=== PATIENT | male | born 1940 | race Caucasian/White ===

== ENCOUNTER 2016-06-19 13:04 | Emergency (ER) | payer MEDICARE ==
[~2016-06-19] VITALS: Ht 185.4 cm; Wt 83.0 kg
[~2016-06-19 13:04] MED LIST: AMOX1TAB61 PO; CHONDROITIN PO; CRANBERRY PO; GLUCOSAMINE PO; HYDR1TAB12 PO; HYDROCODONE PO; LOVA40TA2 PO; MULTIVITAMIN PO; OXYC-302 PO; PRED20TA PO; PROSOM PO; RESV250C2 PO; TAMS-11 PO; VITAMIN D3 PO
[2016-06-19] MEDS ORDERED: METH2.5T PO (13:54)
[2016-06-19] MEDS ORDERED: TRAM100T2 PO (13:55)
[2016-06-19] MEDS ORDERED: FOLI0.4T2 PO (13:55)
[2016-06-19 14:13] LABS: HEMOGLOBIN 14.6 g/dL (13.7-18.0)
[2016-06-19 14:25] LABS: BLOOD UREA NITROGEN 32 mg/dL (7-18)
[2016-06-19 15:00] VITALS: BP 123/72
== END 2016-06-19 15:16 | disposition home or self-care (01) ==
LOC: ED 14:01
DX: R55 Syncope and collapse (principal); E86.0 Dehydration
CPT/HCPCS: 36415; 80048; 82040; 83735; 85025; 93005

== ENCOUNTER 2016-08-18 09:11 | Emergency (ER) | payer MEDICARE ==
[~2016-08-18] VITALS: Ht 182.9 cm; Wt 81.6 kg
[~2016-08-18 09:11] MED LIST changes: +FOLI0.4T2 PO; +METH2.5T PO; +TRAM100T2 PO
[2016-08-18 09:18] VITALS: BP 117/73
[2016-08-18] MEDS ORDERED: SODIUM CHLORIDE 0.9% 1,000 ML IV ONE (09:56)
[2016-08-18] MEDS ORDERED: SODIUM CHLORIDE FLUSH 10ML SYR IVF ONE (10:00)
[2016-08-18 11:03] LABS: PATH.CAST-FLAG NOT PRESENT; SPERM-FLAG NOT PRESENT; SRC-FLAG NOT PRESENT; XTAL-FLAG NOT PRESENT; YLC-FLAG NOT PRESENT
[2016-08-18 11:07] LABS: BLOOD UREA NITROGEN 27 mg/dL (7-18)
[2016-08-18 11:12] LABS: ASPARTATE AMINO TRANSFERASE 17 U/L (15-37)
[2016-08-18] MEDS ORDERED: OMNIPAQUE 350 MG/ML, 100ML BOTTLE ONE (11:38)
[2016-08-18] MEDS ORDERED: CEFTRIAXONE 1,000 MG in SODIUM CHLORIDE 0.9% 50 ML IVPB ONE (12:00)
== END 2016-08-18 13:13 ==
LOC: ED 10:45
DX: N39.0 Urinary tract infection, site not specified (principal); N10 Acute pyelonephritis; R10.30 Lower abdominal pain, unspecified; M86.9 Osteomyelitis, unspecified
CPT/HCPCS: 36415; 74177; 80053; 81001; 85025; 87086; 96361; 96365; 99285; J0696; J7030; Q9967

== ENCOUNTER 2017-02-14 09:29 | Day surgery (SDC) | payer MEDICARE ==
[2017-02-13 10:17] LABS: BLOOD UREA NITROGEN 21 mg/dL (7-18)
[~2017-02-14] VITALS: Ht 185.4 cm; Wt 81.6 kg
[~2017-02-14 09:29] MED LIST changes: +CALC-534 PO; +CRAN500C PO; +MULT-658 PO
[2017-02-14 09:54] VITALS: BP 131/73
[2017-02-14] MEDS ORDERED: LIDOCAINE 1%, 2ML ONE (09:54)
[2017-02-14] MEDS ORDERED: LACTATED RINGERS 1,000 ML IV SCH (09:58)
[2017-02-14] MEDS ORDERED: LIDOCAINE 1%, 2ML SQ PRN (10:00)
[2017-02-14] MEDS ORDERED: MIDAZOLAM 1 MG/ML, 2ML ONE (11:23)
[2017-02-14] MEDS ORDERED: FENTANYL PF 100 MCG/2ML ONE ×2 (11:23)
[2017-02-14] MEDS ORDERED: ALBUTEROL SULFATE 2.5 MG/3 ML NPPB PRN (11:30)
[2017-02-14] MEDS ORDERED: ONDANSETRON 2MG/ML, 2ML IVPush PRN (11:30)
[2017-02-14] MEDS ORDERED: ACETAMINOPHEN 325 MG TABLET PO PRN (11:30)
[2017-02-14] MEDS ORDERED: MIDAZOLAM 1 MG/ML, 2ML IV PRN (11:30)
[2017-02-14] MEDS ORDERED: OXYcodone 5 MG/5 ML ORAL.SOL UDC PO PRN (11:30)
[2017-02-14] MEDS ORDERED: hydrALAzine 20 MG/ML, 1ML IV PRN (11:30)
[2017-02-14] MEDS ORDERED: LABETALOL 5MG/ML, 20ML IV PRN (11:30)
[2017-02-14] MEDS ORDERED: HYDROmorphone 1 MG/ML, 1ML IV PRN (11:30)
[2017-02-14] MEDS ORDERED: FENTANYL PF 100 MCG/2ML IV PRN (11:30)
[2017-02-14] MEDS ORDERED: PROMETHAZINE 25 MG/ML, 1ML IV PRN (11:30)
[2017-02-14] MEDS ORDERED: MEPERIDINE/PF 25MG/0.5ML IVPush PRN (11:30)
[2017-02-14] MEDS ORDERED: PROPOFOL 10 MG/ML, 20ML ONE (11:53)
[2017-02-14] MEDS ORDERED: DEXAMETHASONE 4 MG/ML, 1ML ONE ×2 (11:54)
[2017-02-14] MEDS ORDERED: ROCURONIUM 10 MG/ML,10ML ONE (11:54)
[2017-02-14] MEDS ORDERED: ONDANSETRON 2MG/ML, 2ML ONE ×2 (11:54)
[2017-02-14] MEDS ORDERED: SUCCINYLCHOLINE 20 MG/ML, 10ML ONE (11:54)
[2017-02-14] MEDS ORDERED: CIPROFLOXACIN/PMX 400MG/200ML 200 ML ONE (11:55)
[2017-02-14] MEDS ORDERED: OPIUM/BELLADONNA SUPP.RECT 16.2-60 MG ONE (12:03)
[2017-02-14] MEDS ORDERED: EPHEDRINE 50 MG/ML, 1ML ONE (12:30)
[2017-02-14] MEDS ORDERED: OXYcodone/APAP 5/325MG TABLET PO PRN (13:30)
== END 2017-02-14 15:20 | disposition home or self-care (01) ==
LOC: OUT 09:29
PROVIDERS: ATTEND Urology
DX: N20.0 Calculus of kidney (principal); E78.00 Pure hypercholesterolemia, unspecified; N40.0 Benign prostatic hyperplasia without lower urinary tract symptoms; Z87.440 Personal history of urinary (tract) infections; Z98.890 Other specified postprocedural states
CPT/HCPCS: 36415; 50590; 71020; 74000; 80048; 85610; 85730; 93005; J0330; J0744; J1100; J2250; J2405; J2704; J3010; J3490; J7120

== ENCOUNTER 2017-07-24 08:12 | Emergency (ER) | payer MEDICARE ==
[~2017-07-24] VITALS: Ht 185.4 cm; Wt 80.0 kg
[~2017-07-24 08:12] MED LIST changes: -TRAM100T2 PO; +TRAM100T33 PO
[2017-07-24] MEDS ORDERED: ONDANSETRON ODT 4 MG PO ONE (09:30)
[2017-07-24] MEDS ORDERED: SODIUM CHLORIDE FLUSH 10ML SYR IVF ONE (09:30)
[2017-07-24 09:38] LABS: BASOPHILS # (AUTO) 0.02 x10^3/uL (0-0.1); BASOPHILS % (AUTO) 0 % (0-1); EOSINOPHILS # (AUTO) 0.04 x10^3/uL (0-0.4); EOSINOPHILS % (AUTO) 0 % (1-7); LYMPHOCYTES # (AUTO) 1.32 x10^3/uL (1-3.4); LYMPHOCYTES % (AUTO) 12 % (22-44); MD NO; MEAN CORPUSCULAR HEMOGLOBIN 30.6 pg (27.5-34.5); MEAN CORPUSCULAR HGB CONC 33.5 g/dL (33.2-36.2); MEAN CORPUSCULAR VOLUME 91.4 fL (81-97); MEAN PLATELET VOLUME 7.4 fL (7.4-10.4); MONOCYTES # (AUTO) 0.58 x10^3/uL (0.2-0.8); MONOCYTES % (AUTO) 5 % (2-9); NEUTROPHILS # (AUTO) 8.73 x10^3/uL (1.8-6.8); NEUTROPHILS % (AUTO) 82 % (42-75); PLATELET COUNT 283 x10^3/uL (130-400); RED BLOOD COUNT 4.15 x10^6/uL (4.38-5.82); RED CELL DISTRIBUTION WIDTH 14.2 % (9.4-14.8)
[2017-07-24 09:46] LABS: ALANINE AMINOTRANSFERASE 32 U/L (12-78); ALBUMIN 2.7 g/dL (3.4-5.0); ANION GAP 9 mmol/L (5-15); CALCIUM 8.2 mg/dL (8.5-10.1); CHLORIDE 112 mmol/L (98-107); CREATININE 0.67 mg/dL (0.7-1.3)
[2017-07-24 09:48] LABS: ALKALINE PHOSPHATASE 78 U/L (45-117); BILIRUBIN,TOTAL 0.5 mg/dL (0.2-1.0); TOTAL PROTEIN 6.3 g/dL (6.4-8.2)
[2017-07-24] MEDS ORDERED: MORPHINE SULFATE 4 MG/ML, 1ML ONE ×2 (10:10→10:39)
[2017-07-24] MEDS ORDERED: ONDANSETRON ODT 4 MG ONE (10:10)
[2017-07-24] MEDS: MORPHINE SULFATE 4 MG/ML, 1ML IVPush PRN ×2 (10:35→10:43)
[2017-07-24] MEDS ORDERED: OMNIPAQUE 350 MG/ML, 100ML BOTTLE ONE (10:36)
[2017-07-24 11:53] LABS: MICROSCOPIC INDICATED
[2017-07-24 12:04] LABS: CULTURE INDICATED? YES
[2017-07-24 12:33] VITALS: BP 101/49
== END 2017-07-24 12:36 | disposition home or self-care (01) ==
LOC: ED 11:44
DX: R10.11 Right upper quadrant pain (principal); J15.8 Pneumonia due to other specified bacteria; B96.89 Other specified bacterial agents as the cause of diseases classified elsewhere; C61 Malignant neoplasm of prostate
CPT/HCPCS: 36415; 71046; 74177; 80053; 81001; 83690; 85025; 87077; 87086; 96374; 99285; Q0162; Q9967; 87186

== ENCOUNTER → 2017-10-02 | Outpatient (CLI) | payer MEDICARE ==
[~2017-10-02] MED LIST changes: +FUROSEMIDE 20 MG/2 ML ONE
== END | disposition home or self-care (01) ==
LOC: RAD 09:38
PROVIDERS: ATTEND Urology
DX: R33.9 Retention of urine, unspecified (principal)
CPT/HCPCS: 78708; A9562; J1940

== ENCOUNTER 2019-03-07 20:59 | Emergency (ER) | payer MEDICARE ==
[~2019-03-07] VITALS: Ht 185.4 cm; Wt 85.8 kg
[~2019-03-07 20:59] MED LIST changes: +ACET325T26 PO; +AMPI500C2 PO; +CIPR500T87 PO; -FUROSEMIDE 20 MG/2 ML ONE; -HYDR1TAB12 PO; +HYDR1TAB13 PO; +SULF1TAB24 PO
[2019-03-07] MEDS ORDERED: ONDANSETRON 2MG/ML, 2ML ONE (21:27)
[2019-03-07] MEDS ORDERED: MORPHINE SULFATE 4 MG/ML, 1ML ONE (21:27)
[2019-03-07] MEDS ORDERED: KETOROLAC 30 MG/1 ML ONE (21:27)
[2019-03-07] MEDS ORDERED: ONDANSETRON 2MG/ML, 2ML IVPush ONE (21:30)
[2019-03-07] MEDS ORDERED: KETOROLAC 30 MG/1 ML IVPush ONE (21:30)
[2019-03-07] MEDS ORDERED: MORPHINE SULFATE 4 MG/ML, 1ML IVPush PRN (21:30)
[2019-03-07] MEDS ORDERED: SODIUM CHLORIDE FLUSH 10ML SYR IVF ONE (21:30)
[2019-03-07 21:55] LABS: BASOPHILS # (AUTO) 0.25 x10^3/uL (0-0.1); BASOPHILS % (AUTO) 2 % (0-1); EOSINOPHILS # (AUTO) 0.53 x10^3/uL (0-0.4); EOSINOPHILS % (AUTO) 5 % (1-7); LYMPHOCYTES # (AUTO) 2.47 x10^3/uL (1-3.4); LYMPHOCYTES % (AUTO) 22 % (22-44); MD NO; MEAN CORPUSCULAR HGB CONC 32.5 g/dL (33.2-36.2); MEAN CORPUSCULAR VOLUME 89.1 fL (81-97); MEAN PLATELET VOLUME 7.8 fL (7.4-10.4); MONOCYTES # (AUTO) 0.49 x10^3/uL (0.2-0.8); MONOCYTES % (AUTO) 5 % (2-9); NEUTROPHILS # (AUTO) 7.36 x10^3/uL (1.8-6.8); NEUTROPHILS % (AUTO) 66 % (42-75); PLATELET COUNT 462 x10^3/uL (130-400); RED BLOOD COUNT 4.96 x10^6/uL (4.38-5.82); RED CELL DISTRIBUTION WIDTH 15.7 % (9.4-14.8)
[2019-03-07 22:07] LABS: ALBUMIN 2.9 g/dL (3.4-5.0); ANION GAP 7 mmol/L (5-15); CALCIUM 8.9 mg/dL (8.5-10.1); CHLORIDE 109 mmol/L (98-107); CREATININE 0.97 mg/dL (0.7-1.3)
--- NOTE | 2019-03-07 22:15 | NUR ---
REPORT GIVEN TO JEEVAN
--- NOTE | 2019-03-07 22:15 | NUR ---
PRECEPTOR NOTE: ATTEMPTED TWICE TO PASS COUDE PRIETO, 14 JORDANIAN, AND PRIETO BALLOON POPPED TWICE AFTER PRIETO WAS ABLE TO BACK ALL THE WAY OUT AFTER GETTING URINE IN THE PRIETO LINE. DR. LIZAMA AWARE AND 16 JORDANIAN COUDE TO BE ATTTEMPTED. JEEVAN SHANE AWARE.
--- NOTE | 2019-03-07 22:29 | NUR ---
INSERTED 16 FR PRIETO CATH, URINE SAMPLE COLLECTED AND TAKEN TO LAB
[2019-03-07 22:48] LABS: MICROSCOPIC INDICATED
[2019-03-07] MEDS ORDERED: HYDR-36 PO (22:48)
[2019-03-07 22:49] LABS: CULTURE INDICATED? YES
--- NOTE | 2019-03-07 22:49 | NUR ---
PT RESTING ON GURNEY, DENIES NEEDS AT THIS TIME, MONITORS IN PLACE, SIDERAILS UP X2, CALL LIGHT WITHIN REACH. AWAITING LAB RESULT
[2019-03-07] MEDS ORDERED: CEFTRIAXONE PMX 1GM/50ML 50 ML IV ONE (23:00)
[2019-03-07] MEDS ORDERED: CEFTRIAXONE PMX 1GM/50ML 50 ML ONE (23:09)
--- NOTE | 2019-03-07 23:13 | NUR ---
PT RESTING CALMLY, IV ABX INFUSING, DENIES NEEDS AT THSI TIME, CALL LIGHT WITHIN REACH
[2019-03-07 23:14] VITALS: BP 111/71
--- NOTE | 2019-03-07 23:39 | NUR ---
CHANGED PRIETO CATH BAG TO LEG BAG
== END 2019-03-08 00:04 | disposition home or self-care (01) ==
LOC: ED 22:43
DX: N30.01 Acute cystitis with hematuria (principal); R10.30 Lower abdominal pain, unspecified; N40.1 Benign prostatic hyperplasia with lower urinary tract symptoms; R33.8 Other retention of urine; I10 Essential (primary) hypertension
CPT/HCPCS: 36415; 51702; 80048; 81001; 82040; 85025; 87086; 87186; 96365; 96375; 99284; J0696; J1885; J2270; J2405

== ENCOUNTER 2019-03-11 07:28 | Emergency (ER) | payer MEDICARE ==
[~2019-03-11] VITALS: Ht 185.4 cm; Wt 85.8 kg
[~2019-03-11 07:28] MED LIST changes: +HYDR-36 PO
--- NOTE | 2019-03-11 07:43 | NUR ---
[facility] chemist: Pt ambulatory to ED room 21 from [facility]y in [facility] at this time
--- NOTE | 2019-03-11 07:55 | NUR ---
THIS IS A 78 YO M W/ C/O LEFT SCAPULA PAIN THAT RADIATES INTO HIS NECK THAT STARTED 2-3 WEEKS AGO. PATIENT STATES HE HAS BEEN BED BOUND DUE TO PERINEUM PAIN THAT HE HAS BEEN SEEN AND TREATED FOR. RESPIRATIONS ARE EVEN AND UNLABORED. PATIENT IS IN NO ACUTE DISTRESS. CONVERSING WITH STAFF. CALL LIGHT IN REACH.
[2019-03-11] MEDS ORDERED: CYCLOBENZAPRINE 10 MG TABLET ONE (08:25)
[2019-03-11] MEDS ORDERED: KETOROLAC 30 MG/1 ML ONE (08:25)
[2019-03-11] MEDS ORDERED: CYCLOBENZAPRINE 10 MG TABLET PO ONE (08:30)
[2019-03-11] MEDS ORDERED: KETOROLAC 30 MG/1 ML IM ONE (08:30)
--- NOTE | 2019-03-11 08:32 | NUR ---
PATIENT MEDICATED PER EMAR
[2019-03-11 08:52] LABS: BASOPHILS # (AUTO) 0.03 x10^3/uL (0-0.1); BASOPHILS % (AUTO) 0 % (0-1); EOSINOPHILS # (AUTO) 0.27 x10^3/uL (0-0.4); EOSINOPHILS % (AUTO) 3 % (1-7); LYMPHOCYTES # (AUTO) 1.42 x10^3/uL (1-3.4); LYMPHOCYTES % (AUTO) 16 % (22-44); MD NO; MEAN CORPUSCULAR HEMOGLOBIN 28.2 pg (27.5-34.5); MEAN CORPUSCULAR HGB CONC 32.3 g/dL (33.2-36.2); MEAN CORPUSCULAR VOLUME 87.4 fL (81-97); MEAN PLATELET VOLUME 7.6 fL (7.4-10.4); MONOCYTES % (AUTO) 6 % (2-9); NEUTROPHILS # (AUTO) 6.55 x10^3/uL (1.8-6.8); NEUTROPHILS % (AUTO) 75 % (42-75); PLATELET COUNT 477 x10^3/uL (130-400); RED BLOOD COUNT 4.64 x10^6/uL (4.38-5.82); RED CELL DISTRIBUTION WIDTH 15.6 % (9.4-14.8)
--- NOTE | 2019-03-11 08:53 | NUR ---
REPORT RECEIVED FROM ACOSTA FISCHER. KIMMY BUNCH. PT CURRENTLY IN RADIOLOGY.
--- NOTE | 2019-03-11 09:03 | NUR ---
PT BACK FROM RADIOLOGY.
--- NOTE | 2019-03-11 09:10 | NUR ---
PT GIVEN INCONTINENCE BRIEF PER REQUEST, PT AMBULATORY WITH STEADY GAIT TO RESTROOM.
--- NOTE | 2019-03-11 09:46 | NUR ---
PT AMBULATORY WITH CARRIER OPERATOR TO RADIOLOGY.
--- NOTE | 2019-03-11 10:02 | NUR ---
ALL RESULTS BACK AT THIS TIME, CHART UP FOR RECHECK.
[2019-03-11 10:59] VITALS: BP 124/66
--- NOTE | 2019-03-11 10:59 | NUR ---
PT RESTING COMFORTABLY ON GURNEY, NO NEEDS.
[2019-03-11] MEDS ORDERED: BUPIVACAINE 0.25% ONE (11:05)
[2019-03-11] MEDS ORDERED: LIDOCAINE 1%-EPI 1:100K, 20ML ONE (11:05)
--- NOTE | 2019-03-11 11:13 | NUR ---
AT BEDSIDE FOR BLOCK.
--- NOTE | 2019-03-11 11:22 | NUR ---
PT REQUESTING TO USE THE RESTROOM BEFORE REVIEWING THE DISCHARGE PAPERWORK. PT AMBULATORY TO RESTROOM WITH STEADY GAIT AND NO STAFF ASSISTANCE.
--- NOTE | 2019-03-11 11:27 | NUR ---
Patient/Caregiver given discharge instructions and they have confirmed that they understand the instructions. Patient ambulatory with steady gait.
[2019-03-11] MEDS ORDERED: LIDOCAINE 1%-EPI 1:100K, 20ML SQ ONE (11:30)
[2019-03-11] MEDS ORDERED: BUPIVACAINE/PF-EPI 0.25% 1:200K SQ ONE (11:30)
== END 2019-03-11 11:40 | disposition home or self-care (01) ==
LOC: ED 10:09
DX: S29.012A Strain of muscle and tendon of back wall of thorax, initial encounter (principal); M54.2 Cervicalgia; E78.5 Hyperlipidemia, unspecified; I10 Essential (primary) hypertension; Z85.46 Personal history of malignant neoplasm of prostate; X58.XXXA Exposure to other specified factors, initial encounter; Y93.89 Activity, other specified; Y92.89 Other specified places as the place of occurrence of the external cause; Y99.8 Other external cause status
CPT/HCPCS: 20552; 36415; 71046; 72125; 85025; 96372; 99284; J1885; J3490

== ENCOUNTER 2019-06-24 09:42 | Inpatient (IN) | payer MEDICARE ==
[~2019-06-24] VITALS: Ht 185.4 cm; Wt 86.8 kg
[2019-06-24] MEDS ORDERED: SODIUM CHLORIDE FLUSH 10ML SYR IVF ONE (10:30)
[2019-06-24 10:32] LABS: MEAN CORPUSCULAR HEMOGLOBIN 25.9 pg (27.5-34.5); MEAN CORPUSCULAR HGB CONC 32.1 g/dL (33.2-36.2); MEAN CORPUSCULAR VOLUME 80.6 fL (81-97); MEAN PLATELET VOLUME 7.1 fL (7.4-10.4); PLATELET COUNT 507 x10^3/uL (130-400); RED BLOOD COUNT 4.03 x10^6/uL (4.38-5.82); RED CELL DISTRIBUTION WIDTH 18.2 % (9.4-14.8)
[2019-06-24 10:42] LABS: ALANINE AMINOTRANSFERASE 16 U/L (12-78); ALBUMIN 2.2 g/dL (3.4-5.0); ANION GAP 9 mmol/L (5-15); CALCIUM 8.7 mg/dL (8.5-10.1); CHLORIDE 106 mmol/L (98-107); CREATININE 1.73 mg/dL (0.7-1.3)
[2019-06-24 10:44] LABS: ALKALINE PHOSPHATASE 114 U/L (45-117); BILIRUBIN,TOTAL 0.9 mg/dL (0.2-1.0); TOTAL PROTEIN 7.5 g/dL (6.4-8.2)
[2019-06-24 10:59] LABS: BASOPHILS # (AUTO) 0.05 x10^3/uL (0-0.1); BASOPHILS % (AUTO) 0 % (0-1); EOSINOPHILS % (AUTO) 0 % (1-7); LYMPHOCYTES # (AUTO) 0.69 x10^3/uL (1-3.4); LYMPHOCYTES % (AUTO) 3 % (22-44); MD SCAN; MONOCYTES # (AUTO) 0.52 x10^3/uL (0.2-0.8); MONOCYTES % (AUTO) 2 % (2-9); NEUTROPHILS # (AUTO) 20.61 x10^3/uL (1.8-6.8); NEUTROPHILS % (AUTO) 94 % (42-75)
--- NOTE | 2019-06-24 11:06 | NUR ---
PT PRESENTS TO ED WITH C/O DIZZINESS X 2-3 DAYS, GENERALIZED ABD PAIN X 2 WEEKS. PT HAS A UROSTOMY TO RIGHT LOWER ABD QUAD, URINE NOTED IN BAG IS CLOUDY/CONCENTRATED. PT IS A&OX4, NEURO INTACT, RESPS EVEN AND UNLABORED. PT IS NSR ON DIRECTOR PEDIATRIC, RATE 80'S WITH NO ECTOPY. LABS DRAWN AND RESULTED, AWAITING MD RECHECK FOR CT/FURTHER ORDERS. CALL LIGHT IN REACH. PT UPDATED WITH POC. Addendum: 06/24/19 at 1437 by JUAN pt seen by hospitalist ebonie, however afterwards it was discovered pt is a [facility] pt. [facility] MD Terrell at bedside for admit assessment at this tme. pt a&ox4, resps even and unlabored, neuro intact, no complaint at this time. 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 med rec complete. awaiting admit bed assignment and transport.
[2019-06-24] MEDS ORDERED: ACETAMINOPHEN 500 MG TABLET PO ONE (11:30)
[2019-06-24] MEDS ORDERED: SODIUM CHLORIDE 0.9% 1,000ML IVBOLUS ONE ×2 (11:30→14:00)
--- NOTE | 2019-06-24 11:30 | NUR ---
ALL LABS REVIEWED WITH HIRAM SIFUENTES MD AWARE PT MEETS CRITERIA FOR SEPSIS INCL WBC 21. MD INFORMED OF VS AND TREND. MD DECLINES TO ORDER UA ( PT HAS UROSTOMY), AWARE URINE CLOUDY. ORDERS RECEIVED FOR IVF AND TYLENOL. PT TAKEN TO CT AT THIS TIME.
--- NOTE | 2019-06-24 12:34 | NUR ---
CT RESULTED, CHART UP FOR RECHECK. AWAITING MD AND ORDERS AT THIS TIME.
--- NOTE | 2019-06-24 13:18 | NUR ---
paged to review CT, orders requested for abx and additional IVF.
--- NOTE | 2019-06-24 13:36 | NUR ---
VELIA SIFUENTES NOTIFIED PT'S BP IS TRENDING DOWN, MAP NOW BELOW 65. ORDER RECEIVED TO ADMINISTER REMAINDER OF WEIGHT BASED NS BOLUS PER SEPSIS PROTOCOL, TOTAL OF 2304 ML TO BE ADMINISTERED (INCLUDING 1L ALREADY ADMIN.) SECOND LITER NS INFUSING AT THIS TIME. MD TO ORDER ABX SHORTLY. PT IS DOZING INTERMITTENTLY, AROUSES TO VOICE. PT IS A&OOX4, REPSS EVEN AND UNLABORED. 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 PT HAS NO COMPLAINT AT THIS TIME.
[2019-06-24] MEDS ORDERED: CEFTRIAXONE PMX 1GM/50ML 50 ML ONE (13:40)
[2019-06-24] MEDS ORDERED: CEFTRIAXONE PMX 1GM/50ML 50 ML IVPB ONE (14:00)
[2019-06-24] MEDS ORDERED: AZITHROMYCIN 500 MG in SODIUM CHLORIDE 0.9% 250 ML IV SCH (14:30)
[2019-06-24] MEDS ORDERED: sleeping pill PO (14:35)
--- NOTE | 2019-06-24 14:49 | NUR ---
ASSUMED CARE OF PATIENT. REPORT GIVEN FROM ACOSTA KO
--- NOTE | 2019-06-24 14:52 | NUR ---
REPORT GIVEN TO ACOSTA FLORES AT BEDSIDE. URINE WAS COLLECTED FROM UROSTOMY AT MD MELENDEZ' DIRECTION BY THIS RN, URINE LABELED AND IN TUBES AT BEDSIDE. (EDMO DECLINED TO ORDER UA) URINE SAMPLE COLLECTED APPROX 5 MIN AFTER IV ROCEPHIN INITIATED. THIS RN SPOKE WITH RITIKA SAWANT AT BEDSIDE WHO INSTRUCTED RN TO SEND URINE TO LAB FOR UA/CULTURE IF IND. AWARE THAT URINE WAS COLLECTED 5 MIN AFTER IV ABX INITIATED. PT STILL SPEAKING WITH RITIKA SAWANT'S AT THIS TIME. Addendum: 06/24/19 at 1459 by JUAN REPORT GIVEN TO ACOSTA FLORES AT BEDSIDE. URINE WAS COLLECTED FROM UROSTOMY AT MD MELENDEZ' DIRECTION BY THIS RN, URINE LABELED AND IN TUBES AT BEDSIDE. (EDMD DECLINED TO ORDER UA) URINE SAMPLE COLLECTED APPROX 5 MIN AFTER IV ROCEPHIN INITIATED. THIS RN SPOKE WITH [facility] (MD SORENSEN) AT BEDSIDE WHO INSTRUCTED RN TO SEND URINE TO LAB FOR UA/CULTURE IF IND. AWARE THAT URINE WAS COLLECTED 5 MIN AFTER IV ABX INITIATED. PT STILL SPEAKING WITH RITIKA SAWANT'S AT THIS TIME.
[2019-06-24] MEDS ORDERED: SODIUM CHLORIDE FLUSH 10ML SYR IVF PRN (15:00)
--- NOTE | 2019-06-24 15:02 | NUR ---
FULL STACK NET DEVELOPER IN URINE DEPT CALLED TO NOTIFY SPECIFICS OF URINE COLLECTION/TIMING VS START OF ABX ON URINE COLLECTED FROM UROSTOMY PER MD INSTRUCTIONS. URINE SAMPLE SENT TO LAB.
[2019-06-24 15:24] LABS: MICROSCOPIC INDICATED
[2019-06-24] MEDS ORDERED: ACETAMINOPHEN 325 MG TABLET PO PRN (15:30)
[2019-06-24] MEDS ORDERED: ENALAPRILAT 1.25 MG/ML, 2ML IVPush PRN (15:30)
[2019-06-24] MEDS ORDERED: morphine SULFATE 10 MG/ML, 1ML IVPush PRN (15:30)
[2019-06-24] MEDS ORDERED: ONDANSETRON ODT 4 MG PO PRN (15:30)
[2019-06-24] MEDS ORDERED: LABETALOL 5MG/ML, 20ML IVPush PRN (15:30)
[2019-06-24] MEDS ORDERED: BISACODYL 10 MG SUPP PR PRN (15:30)
[2019-06-24 15:31] LABS: CULTURE INDICATED? YES
--- NOTE | 2019-06-24 15:36 | NUR ---
PT RESTING IN ROOM. NO ACUTE DISTRESS NOTED. CALL LIGHT IN PLACE WILL CONTINUE TO MONITOR.
--- NOTE | 2019-06-24 16:02 | NUR ---
SPOKE WITH [facility] HOSPITALIST ABOUT PATIENT BEING A COVID R/O. HOSPITALIST REPORTS PT IS NOT A RULE OUT AND IS OKAYED FOR THE FLOOR. ACOSTA THIBODEAUX ON SURGICAL AWARE.
[2019-06-24 16:04] LABS: INTERNATIONAL NORMALIZED RATIO 1.13 (0.93-1.1)
[2019-06-24 16:25] VITALS: BP 102/67
[2019-06-24] MEDS ORDERED: LIDOCAINE 1%, 20ML ONE (16:55)
[2019-06-24] MEDS ORDERED: FENTANYL PF 100 MCG/2ML ONE (17:26)
[2019-06-24] MEDS ORDERED: MIDAZOLAM 1 MG/ML, 5ML ONE ×2 (17:26→17:27)
[2019-06-24] MEDS ORDERED: FLUMAZENIL 0.1 MG/1 ML, 5ML ONE (17:27)
[2019-06-24] MEDS ORDERED: NALOXONE 1 MG/ML, 2ML ONE (17:27)
[2019-06-24] MEDS ORDERED: VISIPAQUE 270 MG/ML, 50ML BOTTLE ONE (18:06)
[2019-06-24] MEDS: ACETAMINOPHEN 325 MG TABLET PO PRN (19:14)
[2019-06-24] MEDS ORDERED: SODIUM CHLORIDE 0.9% 500 ML IVBOLUS PRN (19:43)
[2019-06-24] MEDS ORDERED: TEMPLATE NON-FORMULARY MED. (Cranberry Extract** (Cran-Max**) 500 MG) PO SCH (21:00)
[2019-06-24] MEDS: LOVASTATIN 40 MG TABLET PO SCH ×2 (21:00→22:15)
[2019-06-24 21:08] VITALS: BP_SYST 79; BP_SYST 80; BP_DIAS 37; BP_DIAS 38
[2019-06-24] MEDS: LACTATED RINGERS 1,000 ML IV SCH (21:24)
[2019-06-24] MEDS ORDERED: SODIUM CHLORIDE 0.9%, 500ML IVBOLUS ONE (22:00)
[2019-06-24 22:03] VITALS: BP 80/38
[2019-06-24] MEDS: CALCIUM/VITAMIN D3 250-125 TABLET PO SCH (22:16)
[2019-06-24 22:47] VITALS: BP 67/40
[2019-06-24 22:48] VITALS: BP 63/35
[2019-06-25] MEDS ORDERED: CEFTRIAXONE PMX 2GM/50ML 50 ML IV SCH
[2019-06-25] MEDS: CEFTRIAXONE PMX 2GM/50ML 50 ML IV SCH ×2 (00:17→23:53)
[2019-06-25] MEDS ORDERED: NOREPINEPHRINE 8 MG in SODIUM CHLORIDE 0.9% 242 ML IV PRN (03:00)
[2019-06-25 04:04] LABS: ALANINE AMINOTRANSFERASE 13 U/L (12-78); ALBUMIN 1.5 g/dL (3.4-5.0); ANION GAP 10 mmol/L (5-15); CALCIUM 7.1 mg/dL (8.5-10.1); CHLORIDE 114 mmol/L (98-107); CREATININE 2.01 mg/dL (0.7-1.3)
[2019-06-25 04:07] LABS: ALKALINE PHOSPHATASE 108 U/L (45-117); BILIRUBIN,TOTAL 0.3 mg/dL (0.2-1.0); TOTAL PROTEIN 5.4 g/dL (6.4-8.2)
[2019-06-25 04:08] LABS: MEAN CORPUSCULAR HEMOGLOBIN 26.3 pg (27.5-34.5); MEAN CORPUSCULAR HGB CONC 33.3 g/dL (33.2-36.2); MEAN PLATELET VOLUME 7.5 fL (7.4-10.4); PLATELET COUNT 341 x10^3/uL (130-400); RED BLOOD COUNT 3.03 x10^6/uL (4.38-5.82); RED CELL DISTRIBUTION WIDTH 17.7 % (9.4-14.8)
[2019-06-25 04:17] LABS: BAND#(MANUAL) 2.97 x10^3/uL; BANDS%(MANUAL) 10 % (0-7); LYMPHS% (MANUAL) 1 % (22-44); MD YES; MONOS% (MANUAL) 1 % (2-9); SEG#(MANUAL) 26.14 x10^3/uL (1.8-6.8); SEGS% (MANUAL) 88 % (42-75)
[2019-06-25 04:18] LABS: ANISOCYTOSIS 1+; MICROCYTOSIS 1+; OVALOCYTES 1+
[2019-06-25 04:19] LABS: <PLATELET ESTIMATE> ADEQUATE
[2019-06-25 04:20] LABS: <PLT MORPHOLOGY> NORMAL PLT MORPH
[2019-06-25] MEDS ORDERED: POTASSIUM CHLORIDE 40 MEQ in SODIUM CHLORIDE 0.9% 100 ML IV ONE (07:30)
[2019-06-25] MEDS: LACTATED RINGERS 1,000 ML IV SCH ×2 (08:14→20:32)
[2019-06-25] MEDS: AZITHROMYCIN 250 MG TABLET PO SCH (10:04)
[2019-06-25] MEDS: CALCIUM/VITAMIN D3 250-125 TABLET PO SCH ×2 (10:04→20:31)
[2019-06-25] MEDS: MULTIVITAMIN 1 TABLET PO SCH (10:04)
[2019-06-25] MEDS ORDERED: CEFTRIAXONE PMX 1GM/50ML 50 ML IV SCH ×2 (12:00→14:00)
[2019-06-25] MEDS: LOVASTATIN 40 MG TABLET PO SCH ×2 (20:31→20:33)
[2019-06-26 04:22] LABS: ALANINE AMINOTRANSFERASE 12 U/L (12-78); ALBUMIN 1.4 g/dL (3.4-5.0); ANION GAP 7 mmol/L (5-15); CALCIUM 7.5 mg/dL (8.5-10.1); CHLORIDE 115 mmol/L (98-107); CREATININE 1.04 mg/dL (0.7-1.3)
[2019-06-26 04:24] LABS: ALKALINE PHOSPHATASE 100 U/L (45-117); BILIRUBIN,TOTAL 0.2 mg/dL (0.2-1.0); TOTAL PROTEIN 5.3 g/dL (6.4-8.2)
[2019-06-26 04:26] LABS: MEAN CORPUSCULAR HEMOGLOBIN 26.1 pg (27.5-34.5); MEAN CORPUSCULAR HGB CONC 33.1 g/dL (33.2-36.2); MEAN CORPUSCULAR VOLUME 78.7 fL (81-97); MEAN PLATELET VOLUME 7.7 fL (7.4-10.4); PLATELET COUNT 308 x10^3/uL (130-400); RED BLOOD COUNT 2.99 x10^6/uL (4.38-5.82); RED CELL DISTRIBUTION WIDTH 17.8 % (9.4-14.8)
[2019-06-26] MEDS: LACTATED RINGERS 1,000 ML IV SCH ×3 (04:41→20:06)
[2019-06-26 05:35] LABS: MD YES
[2019-06-26 05:36] LABS: ANISOCYTOSIS 1+; BAND#(MANUAL) 2.02 x10^3/uL; BANDS%(MANUAL) 10 % (0-7); EOS#(MANUAL) 0.81 x10^3/uL (0.0-0.4); EOS% (MANUAL) 4 % (1-7); LYMPHS% (MANUAL) 2 % (22-44); MICROCYTOSIS 1+; MONOS% (MANUAL) 1 % (2-9); SEG#(MANUAL) 16.77 x10^3/uL (1.8-6.8); SEGS% (MANUAL) 83 % (42-75)
[2019-06-26 05:37] LABS: <PLATELET ESTIMATE> ADEQUATE; <PLT MORPHOLOGY> NORMAL PLT MORPH; OVALOCYTES 1+
[2019-06-26] MEDS: AZITHROMYCIN 250 MG TABLET PO SCH (07:44)
[2019-06-26] MEDS: CALCIUM/VITAMIN D3 250-125 TABLET PO SCH ×2 (07:44→20:06)
[2019-06-26] MEDS: MULTIVITAMIN 1 TABLET PO SCH (07:44)
[2019-06-26] MEDS ORDERED: PROCHLORPERAZINE 5 MG TABLET PO PRN (08:30)
[2019-06-26 20:00] VITALS: BP 102/63
[2019-06-26] MEDS: LOVASTATIN 40 MG TABLET PO SCH ×2 (20:05→20:06)
[2019-06-26 21:18] VITALS: BP 99/55
[2019-06-26] MEDS: CEFTRIAXONE PMX 2GM/50ML 50 ML IV SCH (23:42)
[2019-06-27 00:20] VITALS: BP 110/65
[2019-06-27] MEDS: LACTATED RINGERS 1,000 ML IV SCH ×3 (04:01→23:48)
[2019-06-27] MEDS: AZITHROMYCIN 250 MG TABLET PO SCH (08:07)
[2019-06-27] MEDS: MULTIVITAMIN 1 TABLET PO SCH (08:07)
[2019-06-27] MEDS: CALCIUM/VITAMIN D3 250-125 TABLET PO SCH ×2 (08:07→20:20)
[2019-06-27 11:31] LABS: MEAN CORPUSCULAR HEMOGLOBIN 25.6 pg (27.5-34.5); MEAN CORPUSCULAR HGB CONC 32.3 g/dL (33.2-36.2); MEAN CORPUSCULAR VOLUME 79.2 fL (81-97); MEAN PLATELET VOLUME 8.3 fL (7.4-10.4); PLATELET COUNT 382 x10^3/uL (130-400); RED BLOOD COUNT 3.39 x10^6/uL (4.38-5.82); RED CELL DISTRIBUTION WIDTH 18.1 % (9.4-14.8)
[2019-06-27 11:38] LABS: ALANINE AMINOTRANSFERASE 36 U/L (12-78); ALBUMIN 1.7 g/dL (3.4-5.0); ANION GAP 7 mmol/L (5-15); CALCIUM 8.7 mg/dL (8.5-10.1); CHLORIDE 111 mmol/L (98-107); CREATININE 0.93 mg/dL (0.7-1.3)
[2019-06-27 11:41] LABS: ALKALINE PHOSPHATASE 249 U/L (45-117); BILIRUBIN,TOTAL 0.2 mg/dL (0.2-1.0); TOTAL PROTEIN 5.9 g/dL (6.4-8.2)
[2019-06-27 11:56] LABS: MD YES
[2019-06-27 11:58] LABS: <PLATELET ESTIMATE> ADEQUATE; <PLT MORPHOLOGY> NORMAL PLT MORPH; ANISOCYTOSIS 1+; BAND#(MANUAL) 0.11 x10^3/uL; BANDS%(MANUAL) 1 % (0-7); EOS#(MANUAL) 0.44 x10^3/uL (0.0-0.4); EOS% (MANUAL) 4 % (1-7); LYMPH#(MANUAL) 0.78 x10^3/uL (1-3.4); LYMPHS% (MANUAL) 7 % (22-44); MICROCYTOSIS 1+; MONOS#(MANUAL) 0.22 x10^3/uL (0.3-2.7); MONOS% (MANUAL) 2 % (2-9); OVALOCYTES 1+; SEG#(MANUAL) 9.55 x10^3/uL (1.8-6.8); SEGS% (MANUAL) 86 % (42-75)
[2019-06-27 19:21] VITALS: BP 131/81
[2019-06-27] MEDS: LOVASTATIN 40 MG TABLET PO SCH ×2 (20:20)
[2019-06-27] MEDS: CEFTRIAXONE PMX 2GM/50ML 50 ML IV SCH (23:49)
[2019-06-28 00:35] VITALS: BP 133/80
[2019-06-28 04:27] LABS: BASOPHILS # (AUTO) 0.03 x10^3/uL (0-0.1); BASOPHILS % (AUTO) 0 % (0-1); EOSINOPHILS # (AUTO) 0.38 x10^3/uL (0-0.4); EOSINOPHILS % (AUTO) 4 % (1-7); LYMPHOCYTES # (AUTO) 1.46 x10^3/uL (1-3.4); LYMPHOCYTES % (AUTO) 15 % (22-44); MD NO; MEAN CORPUSCULAR HEMOGLOBIN 25.6 pg (27.5-34.5); MEAN CORPUSCULAR HGB CONC 32.3 g/dL (33.2-36.2); MEAN CORPUSCULAR VOLUME 79.2 fL (81-97); MEAN PLATELET VOLUME 7.8 fL (7.4-10.4); MONOCYTES # (AUTO) 0.49 x10^3/uL (0.2-0.8); MONOCYTES % (AUTO) 5 % (2-9); NEUTROPHILS % (AUTO) 75 % (42-75); PLATELET COUNT 381 x10^3/uL (130-400); RED CELL DISTRIBUTION WIDTH 18.2 % (9.4-14.8)
[2019-06-28 04:34] LABS: ANION GAP 8 mmol/L (5-15); CALCIUM 9.2 mg/dL (8.5-10.1); CHLORIDE 111 mmol/L (98-107)
[2019-06-28] MEDS: CEFDINIR 300 MG CAPSULE PO SCH ×2 (08:25→21:09)
[2019-06-28] MEDS: AZITHROMYCIN 250 MG TABLET PO SCH (08:25)
[2019-06-28] MEDS: CALCIUM/VITAMIN D3 250-125 TABLET PO SCH ×2 (08:25→21:09)
[2019-06-28] MEDS: MULTIVITAMIN 1 TABLET PO SCH (08:25)
--- NOTE | 2019-06-28 12:31 | NUR ---
REC: Home with Addendum: 06/28/19 at 1232 by Mili CHISHOLM Amended: Links added.
[2019-06-28 19:09] VITALS: BP 124/71
[2019-06-28] MEDS: LOVASTATIN 40 MG TABLET PO SCH ×2 (21:00→21:09)
[2019-06-29 00:30] VITALS: BP 123/72
[2019-06-29 05:38] LABS: BASOPHILS # (AUTO) 0.06 x10^3/uL (0-0.1); BASOPHILS % (AUTO) 1 % (0-1); EOSINOPHILS # (AUTO) 0.54 x10^3/uL (0-0.4); EOSINOPHILS % (AUTO) 6 % (1-7); LYMPHOCYTES # (AUTO) 1.49 x10^3/uL (1-3.4); LYMPHOCYTES % (AUTO) 15 % (22-44); MD NO; MEAN CORPUSCULAR HEMOGLOBIN 25.5 pg (27.5-34.5); MEAN CORPUSCULAR VOLUME 79.7 fL (81-97); MEAN PLATELET VOLUME 7.7 fL (7.4-10.4); MONOCYTES # (AUTO) 0.44 x10^3/uL (0.2-0.8); MONOCYTES % (AUTO) 4 % (2-9); NEUTROPHILS # (AUTO) 7.42 x10^3/uL (1.8-6.8); NEUTROPHILS % (AUTO) 75 % (42-75); PLATELET COUNT 445 x10^3/uL (130-400); RED BLOOD COUNT 3.66 x10^6/uL (4.38-5.82); RED CELL DISTRIBUTION WIDTH 18.3 % (9.4-14.8)
[2019-06-29 05:54] LABS: ANION GAP 6 mmol/L (5-15); CALCIUM 9.2 mg/dL (8.5-10.1); CHLORIDE 110 mmol/L (98-107)
[2019-06-29 05:55] LABS: CREATININE 0.93 mg/dL (0.7-1.3)
[2019-06-29] MEDS: CEFDINIR 300 MG CAPSULE PO SCH ×2 (09:00→21:00)
[2019-06-29 09:04] VITALS: BP 131/76
[2019-06-29] MEDS: CALCIUM/VITAMIN D3 250-125 TABLET PO SCH ×2 (10:24→21:30)
[2019-06-29] MEDS: MULTIVITAMIN 1 TABLET PO SCH (10:24)
[2019-06-29] MEDS: AZITHROMYCIN 250 MG TABLET PO SCH (10:24)
[2019-06-29] MEDS: DOCUSATE 100 MG CAPSULE PO PRN (10:27)
[2019-06-29 15:55] VITALS: BP 117/68
[2019-06-29] MEDS: ACETAMINOPHEN 325 MG TABLET PO PRN (17:48)
[2019-06-29 18:55] VITALS: BP 116/69
[2019-06-29] MEDS: LOVASTATIN 40 MG TABLET PO SCH ×2 (21:00→21:30)
[2019-06-30 01:06] VITALS: BP 113/67
[2019-06-30 07:46] VITALS: BP 126/72
[2019-06-30] MEDS: CALCIUM/VITAMIN D3 250-125 TABLET PO SCH ×2 (08:28→20:23)
[2019-06-30] MEDS: CEFDINIR 300 MG CAPSULE PO SCH ×2 (08:28→20:23)
[2019-06-30] MEDS: MULTIVITAMIN 1 TABLET PO SCH (08:28)
[2019-06-30] MEDS: DOCUSATE 100 MG CAPSULE PO PRN (08:31)
[2019-06-30 14:02] VITALS: BP 115/64
[2019-06-30 18:33] VITALS: BP 105/63
[2019-06-30] MEDS: LOVASTATIN 40 MG TABLET PO SCH ×2 (20:31→21:00)
[2019-07-01 01:04] VITALS: BP 111/69
[2019-07-01 06:29] VITALS: BP 109/61
[2019-07-01] MEDS: DOCUSATE 100 MG CAPSULE PO PRN (08:26)
[2019-07-01] MEDS: CALCIUM/VITAMIN D3 250-125 TABLET PO SCH (08:26)
[2019-07-01] MEDS: MULTIVITAMIN 1 TABLET PO SCH (08:26)
[2019-07-01] MEDS: CEFDINIR 300 MG CAPSULE PO SCH (08:26)
[2019-07-01 13:02] VITALS: BP 97/60
[2019-07-01] MEDS ORDERED: CEFD300C37 PO (15:06)
== END 2019-07-01 16:17 | disposition home or self-care (01) | DRG 871 ==
LOC: ED 10:19 → SUATTDRO 13:48 → UNDOADMIN 15:05 → 4NE 15:05 → EDIP 15:05 → 4WST 21:02 → CCU 23:06 → 4WST 06-26 21:06
PROVIDERS: ADMIT Family Medicine; ATTEND Hospitalist
PROC: 0T903ZZ Drainage of Right Kidney, Percutaneous Approach (ICD-10-PCS; principal; 2019-06-26)
DX: A41.9 Sepsis, unspecified organism (principal); J18.9 Pneumonia, unspecified organism; N17.0 Acute kidney failure with tubular necrosis; R06.6 Hiccough; D63.8 Anemia in other chronic diseases classified elsewhere; N20.9 Urinary calculus, unspecified; K59.00 Constipation, unspecified; Z90.6 Acquired absence of other parts of urinary tract; Z92.21 Personal history of antineoplastic chemotherapy; Z92.3 Personal history of irradiation; Z85.46 Personal history of malignant neoplasm of prostate
CPT/HCPCS: 36415; 50432; 71045; 74176; 76000; 80048; 80053; 81001; 82533; 82962; 83605; 83690; 83735; 84100; 84145; 85025; 85610; 87040; 87077; 87081; 87086; 87186; 93005; 99156; 99157; C1894; G0378; J0456; J0696; J2250; J3010; J3480; Q0162; Q9966; C1729; J2310; J7030; J7040; J7050; J7120; Q0164

== ENCOUNTER 2019-07-22 13:36 | Emergency (ER) | payer MEDICARE ==
[~2019-07-22] VITALS: Ht 185.4 cm; Wt 80.6 kg
[~2019-07-22 13:36] MED LIST changes: +CEFD300C37 PO; +sleeping pill PO
--- NOTE | 2019-07-22 14:13 | NUR ---
ASSIST RN: PT RESTING CALMLY IN BED, IN HOSPITAL GOWN. PT ON VITALS MONITORS. PT GIVEN URINAL TO EMPTY UROSTOMY BAG IF NEEDED. WILL CONTINUE TO MONITOR.
--- NOTE | 2019-07-22 14:17 | NUR ---
EDMD AT BEDSIDE TO EVALUATE AT THIS TIME.
--- NOTE | 2019-07-22 14:56 | NUR ---
lab at bedside at this time.
[2019-07-22 15:13] LABS: BASOPHILS # (AUTO) 0.05 x10^3/uL (0-0.1); BASOPHILS % (AUTO) 1 % (0-1); EOSINOPHILS # (AUTO) 0.31 x10^3/uL (0-0.4); EOSINOPHILS % (AUTO) 4 % (1-7); LYMPHOCYTES # (AUTO) 1.63 x10^3/uL (1-3.4); LYMPHOCYTES % (AUTO) 22 % (22-44); MD NO; MEAN CORPUSCULAR HEMOGLOBIN 25.6 pg (27.5-34.5); MEAN CORPUSCULAR VOLUME 80.1 fL (81-97); MEAN PLATELET VOLUME 7.7 fL (7.4-10.4); MONOCYTES # (AUTO) 0.38 x10^3/uL (0.2-0.8); MONOCYTES % (AUTO) 5 % (2-9); NEUTROPHILS # (AUTO) 5.08 x10^3/uL (1.8-6.8); NEUTROPHILS % (AUTO) 68 % (42-75); PLATELET COUNT 353 x10^3/uL (130-400); RED BLOOD COUNT 4.22 x10^6/uL (4.38-5.82)
[2019-07-22 15:19] LABS: ALANINE AMINOTRANSFERASE 14 U/L (12-78); ALBUMIN 2.8 g/dL (3.4-5.0); ANION GAP 7 mmol/L (5-15); CHLORIDE 109 mmol/L (98-107); CREATININE 1.09 mg/dL (0.7-1.3)
--- NOTE | 2019-07-22 15:20 | NUR ---
US AT BEDSIDE. PT'S AOX4. RESPS EVEN AND UNLABORED.
[2019-07-22 15:21] LABS: ALKALINE PHOSPHATASE 85 U/L (45-117); BILIRUBIN,TOTAL 0.2 mg/dL (0.2-1.0); TOTAL PROTEIN 6.9 g/dL (6.4-8.2)
[2019-07-22 15:50] LABS: INTERNATIONAL NORMALIZED RATIO 0.96 (0.93-1.1); PROTHROMBIN TIME 10.2 Seconds (9.6-11.5)
--- NOTE | 2019-07-22 16:25 | NUR ---
PT RESTING IN [facility]. PT'S AOX4. RESPS EVEN AND UNLABORED. BP/SPO2 MONITORS IN PLACE. CALL LIGHT WITHIN REACH.
[2019-07-22] MEDS ORDERED: RIVAROXABAN 20 MG TABLET PO ONE (16:56)
[2019-07-22] MEDS ORDERED: RIVAROXABAN 20 MG TABLET ONE (17:05)
--- NOTE | 2019-07-22 17:07 | NUR ---
PT MEDICATED PER EMAR. PT TOLERATED WELL.
[2019-07-22 17:53] VITALS: BP 141/63
--- NOTE | 2019-07-22 17:55 | NUR ---
PT RESTING IN [facility]. PT'S AOX4. RESPS EVEN AND UNLABORED. BP/SPO2 MONITORS IN PLACE. CALL LIGHT WITHIN REACH.
--- NOTE | 2019-07-22 18:03 | NUR ---
Patient given discharge instructions and they have confirmed that they understand the instructions.
== END 2019-07-22 18:04 | disposition home or self-care (01) ==
LOC: ED 14:26
DX: I82.412 Acute embolism and thrombosis of left femoral vein (principal); I10 Essential (primary) hypertension; Z95.5 Presence of coronary angioplasty implant and graft
CPT/HCPCS: 36415; 80053; 85025; 85610; 85730; 99285

== ENCOUNTER 2019-08-30 07:12 | Emergency (ER) | payer MEDICARE ==
[~2019-08-30] VITALS: Ht 185.4 cm; Wt 85.4 kg
[~2019-08-30 07:12] MED LIST changes: +HYDR-3246 PO; -HYDR-36 PO
--- NOTE | 2019-08-30 07:25 | NUR ---
Pt to room from triage, ambulatory with steady gait.
--- NOTE | 2019-08-30 07:35 | NUR ---
First contact with pt. Pt states he was diagnosed with a DVT in his L femoral vein. Pt states that he has been taking Elliquis for this as well as having elevated his L leg and wearing compression stockings. Pt states his PCP also prescribed Keflex which he has only one more day of. Pt ambulatory with steady gait, CMS intact in bilat LEs. LLE with distal erethema, pulses are intact. Pt placed in gown, positioned for comfort in bed, declines warm blanket offered.
[2019-08-30 09:04] VITALS: BP 142/67
--- NOTE | 2019-08-30 09:04 | NUR ---
TASK RN: PT RESTING ON MANJIT. [place]. VSS. EKG COMPLETED.
[2019-08-30 09:23] LABS: BASOPHILS # (AUTO) 0.05 x10^3/uL (0-0.1); BASOPHILS % (AUTO) 1 % (0-1); EOSINOPHILS # (AUTO) 0.23 x10^3/uL (0-0.4); EOSINOPHILS % (AUTO) 3 % (1-7); LYMPHOCYTES # (AUTO) 1.68 x10^3/uL (1-3.4); LYMPHOCYTES % (AUTO) 25 % (22-44); MD NO; MEAN CORPUSCULAR HEMOGLOBIN 26.2 pg (27.5-34.5); MEAN CORPUSCULAR HGB CONC 32.2 g/dL (33.2-36.2); MEAN CORPUSCULAR VOLUME 81.6 fL (81-97); MEAN PLATELET VOLUME 7.8 fL (7.4-10.4); MONOCYTES # (AUTO) 0.53 x10^3/uL (0.2-0.8); MONOCYTES % (AUTO) 8 % (2-9); NEUTROPHILS # (AUTO) 4.31 x10^3/uL (1.8-6.8); NEUTROPHILS % (AUTO) 63 % (42-75); PLATELET COUNT 356 x10^3/uL (130-400); RED BLOOD COUNT 4.74 x10^6/uL (4.38-5.82); RED CELL DISTRIBUTION WIDTH 20.1 % (9.4-14.8)
[2019-08-30 09:34] LABS: ALANINE AMINOTRANSFERASE 21 U/L (12-78); ALBUMIN 3.1 g/dL (3.4-5.0); ANION GAP 9 mmol/L (5-15); CALCIUM 9.4 mg/dL (8.5-10.1); CHLORIDE 108 mmol/L (98-107); CREATININE 1.14 mg/dL (0.7-1.3)
[2019-08-30 09:39] LABS: ALKALINE PHOSPHATASE 89 U/L (45-117); BILIRUBIN,TOTAL 0.4 mg/dL (0.2-1.0); TOTAL PROTEIN 7.3 g/dL (6.4-8.2)
== END 2019-08-30 11:16 | disposition home or self-care (01) ==
LOC: ED 08:45
DX: R60.0 Localized edema (principal); M25.571 Pain in right ankle and joints of right foot; M25.572 Pain in left ankle and joints of left foot; R94.31 Abnormal electrocardiogram [ECG] [EKG]; E78.5 Hyperlipidemia, unspecified; I10 Essential (primary) hypertension; Z86.718 Personal history of other venous thrombosis and embolism; Z85.46 Personal history of malignant neoplasm of prostate
CPT/HCPCS: 36415; 71045; 80053; 83880; 85025; 93005; 93970; 99285

== ENCOUNTER 2019-10-19 07:13 | Emergency (ER) | payer MEDICARE ==
[~2019-10-19] VITALS: Ht 185.4 cm; Wt 87.2 kg
[~2019-10-19 07:13] MED LIST changes: +APIX2.5T PO; +FURO-93 PO; +LEVO750T6 PO; +METR-90 PO; +SODI1TAB PO
[2019-10-19 08:39] LABS: BASOPHILS # (AUTO) 0.01 x10^3/uL (0-0.1); BASOPHILS % (AUTO) 0 % (0-1); EOSINOPHILS # (AUTO) 0.37 x10^3/uL (0-0.4); EOSINOPHILS % (AUTO) 6 % (1-7); LYMPHOCYTES # (AUTO) 1.51 x10^3/uL (1-3.4); LYMPHOCYTES % (AUTO) 26 % (22-44); MD NO; MEAN CORPUSCULAR HEMOGLOBIN 26.1 pg (27.5-34.5); MEAN CORPUSCULAR VOLUME 81.6 fL (81-97); MEAN PLATELET VOLUME 7.4 fL (7.4-10.4); MONOCYTES # (AUTO) 0.38 x10^3/uL (0.2-0.8); MONOCYTES % (AUTO) 7 % (2-9); NEUTROPHILS # (AUTO) 3.62 x10^3/uL (1.8-6.8); NEUTROPHILS % (AUTO) 61 % (42-75); PLATELET COUNT 297 x10^3/uL (130-400); RED BLOOD COUNT 4.65 x10^6/uL (4.38-5.82); RED CELL DISTRIBUTION WIDTH 16.7 % (9.4-14.8)
--- NOTE | 2019-10-19 08:43 | NUR ---
PT RESTING IN BED AT THIS TIME, IN HOSPITAL GOWN. NO STATED COMPLAINTS AT THIS TIME. ABLE TO COLLECT URINE SAMPLE FROM UROSTOMY BAG.
[2019-10-19 08:49] LABS: ALANINE AMINOTRANSFERASE 27 U/L (12-78); ALBUMIN 2.9 g/dL (3.4-5.0); ANION GAP 6 mmol/L (5-15); CALCIUM 8.4 mg/dL (8.5-10.1); CHLORIDE 111 mmol/L (98-107); CREATININE 1.02 mg/dL (0.7-1.3)
[2019-10-19 08:51] LABS: ALKALINE PHOSPHATASE 84 U/L (45-117); BILIRUBIN,TOTAL 0.4 mg/dL (0.2-1.0); TOTAL PROTEIN 6.9 g/dL (6.4-8.2)
[2019-10-19 09:00] LABS: MICROSCOPIC INDICATED
[2019-10-19 09:38] VITALS: BP 134/66
--- NOTE | 2019-10-19 09:44 | NUR ---
ALL RESULTS BACK. PT UP FOR RECHECK. PT REMAINS IN BED, ON HIS PHONE. NO STATED NEEDS AT THIS TIME.
== END 2019-10-19 10:36 ==
LOC: ED 09:00
DX: N30.00 Acute cystitis without hematuria (principal); M54.5 Low back pain; I10 Essential (primary) hypertension
CPT/HCPCS: 36415; 80053; 81001; 85025; 87077; 87086; 99283

== ENCOUNTER 2020-10-08 06:57 | Inpatient (IN) | payer MEDICARE ==
[~2020-10-08] VITALS: Ht 182.9 cm; Wt 87.3 kg
[~2020-10-08 06:57] MED LIST changes: -FOLI0.4T2 PO; +FOLI0.4T5 PO; -HYDR-3246 PO; +HYDR-3248 PO; -OXYC-302 PO; +OXYC1TAB14 PO; +SULF-23 PO; -SULF1TAB24 PO
[2020-10-08] MEDS ORDERED: SODIUM CHLORIDE FLUSH 10ML SYR IVF ONE (08:00)
[2020-10-08 08:27] LABS: BASOPHILS % (AUTO) 0 % (0-1); EOSINOPHILS % (AUTO) 1 % (1-7); LYMPHOCYTES % (AUTO) 18 % (22-44); MEAN CORPUSCULAR HGB CONC 33.9 g/dL (33.2-36.2); MONOCYTES % (AUTO) 8 % (2-9); NEUTROPHILS % (AUTO) 73 % (42-75); PLATELET COUNT 207 x10^3/uL (130-400); RED BLOOD COUNT 5.14 x10^6/uL (4.38-5.82)
[2020-10-08 08:36] LABS: ALBUMIN 3.2 g/dL (3.4-5.0); ANION GAP 8 mmol/L (5-15); CALCIUM 9.1 mg/dL (8.5-10.1); CHLORIDE 107 mmol/L (98-107)
[2020-10-08 08:40] LABS: ALANINE AMINOTRANSFERASE 32 U/L (12-78); ALKALINE PHOSPHATASE 73 U/L (45-117); BILIRUBIN,TOTAL 0.7 mg/dL (0.2-1.0); CREATININE 1.52 mg/dL (0.7-1.3); TOTAL PROTEIN 7.4 g/dL (6.4-8.2)
--- NOTE | 2020-10-08 08:40 | NUR ---
pt presents to ED with c/o bloating and generalized abd pain x 1 day, denies n/v/d. pt a&o, resps even and unlabored, bp and spo2 monitors in place. call light in reach. pt informed of poc for CT scan, agreeable.
--- NOTE | 2020-10-08 08:47 | NUR ---
pt up to bathroom for void, gait steady.
--- NOTE | 2020-10-08 09:11 | NUR ---
PIV placed, pt awaiting CT scan. nadn at this time.
--- NOTE | 2020-10-08 09:25 | NUR ---
PT TO CT, NADN AT TRANSPORT. PRIOR TO TRANSPORT, PRIOR TO TRANSPORT, PT HAD ONE BM AND EMPTIED OWN UROSTOMY. PT STATES ABD PAIN LESSENED AFTER BM.
--- NOTE | 2020-10-08 09:40 | NUR ---
pt back from CT scan, nadn upon return.
[2020-10-08] MEDS ORDERED: OMNIPAQUE 350 MG/ML, 100ML BOTTLE ONE (09:44)
[2020-10-08] MEDS ORDERED: SODIUM CHLORIDE 0.9% 1,000ML IVBOLUS ONE (10:30)
[2020-10-08] MEDS ORDERED: LIDOCAINE-MPF 1%, 2ML ONE (11:15)
[2020-10-08] MEDS ORDERED: vitamin d PO (11:20)
[2020-10-08] MEDS ORDERED: SENN1TAB67 PO (11:20)
[2020-10-08] MEDS ORDERED: calcium PO (11:20)
[2020-10-08] MEDS ORDERED: vitamin e PO (11:20)
[2020-10-08] MEDS ORDERED: vitamin c PO (11:20)
[2020-10-08] MEDS ORDERED: VITA1TAB19 PO (11:20)
[2020-10-08] MEDS ORDERED: coq10 PO (11:20)
--- NOTE | 2020-10-08 11:20 | NUR ---
MD informed that pt has stooled x 1 in ED. med rec completed, to insert NG tube. pt updated with poc for NG and admit, pt agreeable. pt now states abd pain is 3/10 vs 7/10 upon arrival.
--- NOTE | 2020-10-08 11:45 | NUR ---
18 F NG TUBE PLACED TO RIGHT NARE BY HIRAM COTTO. PT TOLERATED WELL. 1% LIDOCAINE ADMINISTERED VIA ATOMIZER (NASAL) PRIOR TO NG PLACEMENT PER MD ORDER. NG VERIFIED BY ASPIRATION AND AUSCULTATION, MD DECLINES TO ORDER ABD XRAY WHEN REQUESTED. NG PLACED TO LOW CONTINUOUS SUCTION PER MD ORDER. ALL MONITORS IN PLACE, NSR ON RIDING DOUBLE WITH NO ECTOPY. EKG TAKEN BY EDT D/T WIDE QRS VISUALIZED ON MONITOR, REVIEWED BY HIRAM COTTO. NO FURTHER ORDERS RECEIVED.
--- NOTE | 2020-10-08 12:39 | NUR ---
HOSPITALIST JATINDER AT BEDSIDE, RN INSTRUCTED TO ORDER ABD XRAY ONE VIEW TO CONFIRM NG PLACEMENT.
[2020-10-08] MEDS ORDERED: LIDOCAINE GEL 2%, 5ML TP ONE (13:30)
[2020-10-08] MEDS ORDERED: ONDANSETRON 2MG/ML, 2ML IVPush PRN (13:30)
[2020-10-08] MEDS ORDERED: ACETAMINOPHEN 325 MG TABLET PO PRN (13:30)
[2020-10-08] MEDS: SODIUM CHLORIDE 0.9% 1,000 ML IV SCH (13:46)
[2020-10-08 14:15] VITALS: BP 122/80
[2020-10-08 19:56] VITALS: BP 136/82
[2020-10-09 00:55] VITALS: BP 144/78
[2020-10-09] MEDS: ASA/APAP/ CAFFEINE TABLET PO PRN (01:52)
[2020-10-09] MEDS: SODIUM CHLORIDE 0.9% 1,000 ML IV SCH ×2 (03:37→16:34)
[2020-10-09 06:57] VITALS: BP 145/76
[2020-10-09 08:33] LABS: ALBUMIN 2.8 g/dL (3.4-5.0)
[2020-10-09 08:39] LABS: BASOPHILS % (AUTO) 0 % (0-1); EOSINOPHILS % (AUTO) 5 % (1-7); LYMPHOCYTES % (AUTO) 22 % (22-44); MEAN CORPUSCULAR HEMOGLOBIN 31.8 pg (27.5-34.5); MEAN CORPUSCULAR HGB CONC 33.4 g/dL (33.2-36.2); MEAN PLATELET VOLUME 8.1 fL (7.4-10.4); MONOCYTES % (AUTO) 8 % (2-9); NEUTROPHILS % (AUTO) 66 % (42-75); PLATELET COUNT 196 x10^3/uL (130-400); RED CELL DISTRIBUTION WIDTH 15.1 % (9.4-14.8)
[2020-10-09 08:46] LABS: ALANINE AMINOTRANSFERASE 24 U/L (12-78); ALKALINE PHOSPHATASE 62 U/L (45-117); BILIRUBIN,TOTAL 0.9 mg/dL (0.2-1.0); CREATININE 0.89 mg/dL (0.7-1.3); TOTAL PROTEIN 6.6 g/dL (6.4-8.2)
[2020-10-09 08:55] LABS: ANION GAP 7 mmol/L (5-15); CHLORIDE 113 mmol/L (98-107)
[2020-10-09 12:05] VITALS: BP 113/63
[2020-10-09] MEDS ORDERED: TRAZODONE 50MG TABLET PO PRN (14:00)
[2020-10-09] MEDS: chlorPROMAZINE 10MG TABLET PO PRN (16:34)
[2020-10-09 19:23] VITALS: BP 129/77
[2020-10-10 01:13] VITALS: BP 128/71
[2020-10-10 05:46] LABS: BASOPHILS % (AUTO) 0 % (0-1); EOSINOPHILS % (AUTO) 5 % (1-7); LYMPHOCYTES % (AUTO) 35 % (22-44); MEAN CORPUSCULAR HEMOGLOBIN 31.9 pg (27.5-34.5); MEAN CORPUSCULAR HGB CONC 33.8 g/dL (33.2-36.2); MEAN PLATELET VOLUME 8.3 fL (7.4-10.4); MONOCYTES % (AUTO) 7 % (2-9); NEUTROPHILS % (AUTO) 53 % (42-75); PLATELET COUNT 181 x10^3/uL (130-400); RED BLOOD COUNT 4.23 x10^6/uL (4.38-5.82)
[2020-10-10 05:54] LABS: CHLORIDE 114 mmol/L (98-107)
[2020-10-10 05:59] LABS: ANION GAP 6 mmol/L (5-15); CALCIUM 7.7 mg/dL (8.5-10.1); CREATININE 0.71 mg/dL (0.7-1.3)
[2020-10-10] MEDS: ASA/APAP/ CAFFEINE TABLET PO PRN ×2 (08:07→16:22)
[2020-10-10 08:08] VITALS: BP 132/72
[2020-10-10 12:44] VITALS: BP 108/66
[2020-10-10 12:48] VITALS: BP 108/66
[2020-10-10] MEDS: chlorPROMAZINE 10MG TABLET PO PRN (17:58)
== END 2020-10-10 18:06 | disposition home or self-care (01) | DRG 388 ==
LOC: ED 07:28 → EDIP 10:09 → 3N 13:13
PROVIDERS: ADMIT Hospitalist; ATTEND Hospitalist
PROC: 0D9670Z Drainage of Stomach with Drainage Device, Via Natural or Artificial Opening (ICD-10-PCS; principal; 2020-10-08)
DX: K56.51 Intestinal adhesions [bands], with partial obstruction (principal); N17.0 Acute kidney failure with tubular necrosis; Z94.0 Kidney transplant status; T86.19 Other complication of kidney transplant; Z66 Do not resuscitate; K59.00 Constipation, unspecified; G89.29 Other chronic pain; E78.5 Hyperlipidemia, unspecified; I44.7 Left bundle-branch block, unspecified; R73.9 Hyperglycemia, unspecified; E86.0 Dehydration; Y83.8 Other surgical procedures as the cause of abnormal reaction of the patient, or of later complication, without mention of misadventure at the time of the procedure; Z85.46 Personal history of malignant neoplasm of prostate; Z90.79 Acquired absence of other genital organ(s); Z93.6 Other artificial openings of urinary tract status; Z92.3 Personal history of irradiation; Z90.5 Acquired absence of kidney; Z87.442 Personal history of urinary calculi; Z90.89 Acquired absence of other organs; Z79.899 Other long term (current) drug therapy
CPT/HCPCS: 36415; 74018; 74177; 80048; 80053; 83735; 84100; 84443; 85025; 93005; 99285; G0378; Q9967; J7030